=== PATIENT | female | born 1955 | race African-American/Black ===

== ENCOUNTER 2017-06-10 20:22 | Inpatient (IN) | payer MEDICARE, MEDICAID ==
[~2017-06-10] VITALS: Ht 160 cm; Wt 101.7 kg
[~2017-06-10 20:22] MED LIST: AMIT75TA2 PO; CLON0.2T PO; FURO40TA5 PO; GLIP5TAB12 PO; MECL-109 PO; NIFEDIPINE PO; PRAV80TA21 PO; RIVA20TA PO
[2017-06-10] MEDS ORDERED: ACETAMINOPHEN 325MG TABLET PO ONE ×2 (21:15)
[2017-06-10] MEDS ORDERED: LEVOFLOXACIN 750MG PREMIX 150 ML IV ONE (21:15)
[2017-06-10 21:49] LABS: HEMATOCRIT. 44.3 % (36.0-48.0); HEMOGLOBIN. 14.8 g/dL (12.0-16.0); MEAN CORPUSCULAR HEMOGLOBIN 27.7 pg (28.0-32.0); MEAN CORPUSCULAR VOLUME 82.7 fL (81.0-99.0); MEAN PLATELET VOLUME 8.2 fl (7.4-10.4); PLATELET 380 x1000/uL (130-400); RED BLOOD CELL COUNT 5.36 mill/uL (4.2-5.4); RED CELL DISTRIBUTION WIDTH 16.1 % (11.6-14.6)
[2017-06-10 21:53] LABS: INR 1.2; PROTHROMBIN TIME 12.7 sec
[2017-06-10 21:57] LABS: CARBON DIOXIDE 22 mEq/L (21-32); CHLORIDE 101 mEq/L (98-107)
[2017-06-10 21:57] LABS: CLARITY URINE CLEAR (CLEAR); COLOR URINE DARK YELLOW (YELLOW); GLUCOSE URINE 3+ (NEGATIVE); KETONES URINE NEGATIVE (NEGATIVE); LEUKOCYTE ESTERASE URINE NEGATIVE (NEGATIVE); NITRITE URINE NEGATIVE (NEGATIVE); OCCULT BLOOD URINE TRACE (NEGATIVE); PROTEIN URINE TRACE (NEGATIVE); SPECIFIC GRAVITY URINE 1.029 (1.005-1.030)
[2017-06-10 22:03] LABS: TROPONIN I < 0.02 ng/mL (0.00-0.04)
[2017-06-10 22:14] LABS: PLATELET ESTIMATE NORMAL
[2017-06-10] MEDS ORDERED: SODIUM CHLORIDE 0.9% 1000ML BAG (SEPSIS BOLUS) IV ONE (22:15)
[2017-06-10 22:22] LABS: BG BASE EXCESS -3.1 mmol/L (-2.0-2.0); BG CARBOXYHEMOGLOBIN 0.2 % (0.5-1.5); BG DEOXYHEMOGLOBIN 1.9 % (0.0-5.0); BG FRACTION INSPIRED OXYGEN 28; BG HCO3 ACT 20.3 mmol/L (22.0-26.0); BG METHEMOGLOBIN 0.6 % (0.0-1.5); BG OXYGEN SATURATION 98.1 % (92.0-98.5); BG OXYHEMOGLOBIN 97.3 % (94.0-97.0); BG PCO2 32.2 mmHg (35.0-45.0); BG PH 7.417 (7.350-7.450); BG PO2 106.5 mmHg (75.0-100.0); BG SAMPLE SITE RIGHT RADIAL; BG TOTAL HEMOGLOBIN 16.1 g/dL (12.0-18.0); BG VENT MODE NASAL CANNULA
[2017-06-11] VITALS (12 sets, daily range): BP systolic 122–164; BP diastolic 57–96
[2017-06-11] MEDS ORDERED: SODIUM CHLORIDE 0.9% 10ML VIAL ONE (06:00)
[2017-06-11] MEDS ORDERED: IOHEXOL-300 100 ML BOTTLE ONE (06:00)
[2017-06-11] MEDS ORDERED: ONDANSETRON HCL 4MG/2ML VIAL IV PRN (08:15)
[2017-06-11] MEDS ORDERED: LORAZEPAM 2MG/ML CPJ IV PRN (08:15)
[2017-06-11] MEDS ORDERED: ACETAMINOPHEN 325MG TABLET PO PRN (08:15)
[2017-06-11] MEDS ORDERED: HYDROMORPHONE HCL/PF 2MG/ML CPJ IV PRN (08:15)
[2017-06-11] MEDS ORDERED: IPRATROPIUM/ALBUTEROL 0.5-3(2.5)MG/3ML NEB INH PRN (08:15)
[2017-06-11] MEDS ORDERED: RIVAROXABAN 20 MG TABLET PO SCH (09:00)
[2017-06-11] MEDS: FUROSEMIDE 40MG TABLET PO SCH (09:49)
[2017-06-11] MEDS: PANTOPRAZOLE SODIUM 40 MG/VIAL IV SCH (09:49)
[2017-06-11] MEDS: ENOXAPARIN 30MG/0.3ML SYR SUBCUT SCH ×2 (09:49→21:42)
[2017-06-11] MEDS: DEXT 5%/0.45% NACL 1000ML 1,000 ML IV SCH ×2 (09:49→21:43)
[2017-06-11] MEDS: GLIPIZIDE 5MG TABLET PO SCH (09:49)
[2017-06-11] MEDS: NIFEDIPINE XL 60MG TAB PO SCH (09:53)
[2017-06-11] MEDS: CLONIDINE 0.2MG TABLET PO SCH ×3 (09:53→21:43)
[2017-06-11] MEDS ORDERED: METRONIDAZOLE 500 MG PREMIX 100 ML IV SCH (10:00)
[2017-06-11] MEDS ORDERED: VANCOMYCIN 2,000 MG in DEXT 5% WATER 500 ML IV SCH (15:30)
[2017-06-11] MEDS: PIPERACILLIN/TAZ 3.375G PREMIX 50 ML IV SCH ×2 (15:41→21:41)
[2017-06-11] MEDS ORDERED: SILVER SULFADIAZINE 1% CREAM 50GM TOP SCH (18:30)
[2017-06-11] MEDS: LEVOFLOXACIN 500MG PREMIX 100 ML IV SCH (21:42)
[2017-06-11] MEDS: ATORVASTATIN CALCIUM 20MG TABLET PO SCH (21:43)
[2017-06-12] VITALS (10 sets, daily range): BP systolic 135–162; BP diastolic 54–94
[2017-06-12] MEDS: PIPERACILLIN/TAZ 3.375G PREMIX 50 ML IV SCH ×4 (02:22→20:51)
[2017-06-12] MEDS: VANCOMYCIN 1 G PREMIX 200 ML IV SCH ×2 (04:13→19:11)
[2017-06-12] MEDS: CLONIDINE 0.2MG TABLET PO SCH ×3 (05:12→20:50)
[2017-06-12 06:18] LABS: CHLORIDE 99 mEq/L (98-107)
[2017-06-12 06:31] LABS: BASOPHILS % 0.8 % (0.0-2.0); EOSINOPHILS % 4.5 % (0.0-5.0); HEMATOCRIT. 39.8 % (36.0-48.0); HEMOGLOBIN. 13.4 g/dL (12.0-16.0); LYMPHOCYTES % 18.9 % (20.0-50.0); MEAN CORPUSCULAR HEMOGLOBIN 27.5 pg (28.0-32.0); MEAN CORPUSCULAR VOLUME 81.8 fL (81.0-99.0); MEAN PLATELET VOLUME 8.8 fl (7.4-10.4); MONOCYTES % 7.5 % (2.0-8.0); NEUTROPHILS % 68.3 % (40.0-76.0); PLATELET 368 x1000/uL (130-400); RED BLOOD CELL COUNT 4.86 mill/uL (4.2-5.4); RED CELL DISTRIBUTION WIDTH 15.6 % (11.6-14.6)
[2017-06-12 06:45] LABS: CARBON DIOXIDE 24 mEq/L (21-32)
[2017-06-12] MEDS: PANTOPRAZOLE SODIUM 40 MG/VIAL IV SCH (08:24)
[2017-06-12] MEDS: NIFEDIPINE XL 60MG TAB PO SCH (08:25)
[2017-06-12] MEDS: SILVER SULFADIAZINE 1% CREAM 50GM TOP SCH (08:25)
[2017-06-12] MEDS: FUROSEMIDE 40MG TABLET PO SCH (08:25)
[2017-06-12] MEDS: ENOXAPARIN 30MG/0.3ML SYR SUBCUT SCH ×2 (08:25→20:51)
[2017-06-12] MEDS: POVIDONE IODINE TOP SCH (08:25)
[2017-06-12] MEDS: GLIPIZIDE 5MG TABLET PO SCH (08:25)
[2017-06-12] MEDS ORDERED: POVIDONE-IODINE 10% TOPICAL SOLN 240ML TOP SCH ×2 (09:00→21:00)
[2017-06-12] MEDS: DEXT 5%/0.45% NACL 1000ML 1,000 ML IV SCH ×2 (11:10→20:50)
[2017-06-12] MEDS ORDERED: POTASSIUM CHLORIDE 20MEQ TABLET SR PO NR (11:15)
[2017-06-12] MEDS ORDERED: DEXTROSE 50% WATER 50ML SYRINGE IV PRN (20:45)
[2017-06-12] MEDS: ATORVASTATIN CALCIUM 20MG TABLET PO SCH (20:50)
[2017-06-12] MEDS ORDERED: SILVER SULFADIAZINE 1% CREAM 25GM TOP SCH (21:00)
[2017-06-12] MEDS: BLOOD SUGAR DIAGNOSTIC STRIP TEST SCH (21:15)
[2017-06-12] MEDS: INSULIN LISPRO 100 UNITS/ML SUBCUT SCH (21:17)
[2017-06-12] MEDS: MUPIROCIN 2% OINT 22GM NS SCH (21:18)
[2017-06-12] MEDS: LEVOFLOXACIN 500MG PREMIX 100 ML IV SCH (22:40)
[2017-06-13] VITALS: BP 140/91
[2017-06-13] MEDS: VANCOMYCIN 1 G PREMIX 200 ML IV SCH ×2 (02:45→16:50)
[2017-06-13] MEDS: PIPERACILLIN/TAZ 3.375G PREMIX 50 ML IV SCH ×4 (02:45→20:45)
[2017-06-13 04:00] VITALS: BP 151/89
[2017-06-13] MEDS: CLONIDINE 0.2MG TABLET PO SCH ×3 (05:34→21:26)
[2017-06-13] MEDS: BLOOD SUGAR DIAGNOSTIC STRIP TEST SCH ×4 (05:38→20:53)
[2017-06-13 05:59] LABS: CARBON DIOXIDE 23 mEq/L (21-32); CHLORIDE 100 mEq/L (98-107); VANCOMYCIN TROUGH 38.1 ug/mL (5.0-10.0)
[2017-06-13 07:46] LABS: EOSINOPHILS % 2.8 % (0.0-5.0); HEMOGLOBIN. 14.1 g/dL (12.0-16.0); LYMPHOCYTES % 16.1 % (20.0-50.0); MEAN CORPUSCULAR HEMOGLOBIN 27.9 pg (28.0-32.0); MEAN CORPUSCULAR VOLUME 80.8 fL (81.0-99.0); MEAN PLATELET VOLUME 8.6 fl (7.4-10.4); MONOCYTES % 8.6 % (2.0-8.0); NEUTROPHILS % 71.5 % (40.0-76.0); PLATELET 407 x1000/uL (130-400); RED BLOOD CELL COUNT 5.07 mill/uL (4.2-5.4); RED CELL DISTRIBUTION WIDTH 15.5 % (11.6-14.6)
[2017-06-13 08:00] VITALS: BP 141/88
[2017-06-13] MEDS: FUROSEMIDE 40MG TABLET PO SCH (09:01)
[2017-06-13] MEDS: INSULIN LISPRO 100 UNITS/ML SUBCUT SCH ×4 (09:01→21:23)
[2017-06-13] MEDS: PANTOPRAZOLE SODIUM 40 MG/VIAL IV SCH (09:02)
[2017-06-13] MEDS: NIFEDIPINE XL 60MG TAB PO SCH (09:02)
[2017-06-13] MEDS: GLIPIZIDE 5MG TABLET PO SCH (09:02)
[2017-06-13] MEDS: ENOXAPARIN 30MG/0.3ML SYR SUBCUT SCH ×2 (09:03→20:46)
[2017-06-13] MEDS: MUPIROCIN 2% OINT 22GM NS SCH ×2 (09:07→20:45)
[2017-06-13] MEDS: POVIDONE IODINE TOP SCH (09:07)
[2017-06-13] MEDS: SILVER SULFADIAZINE 1% CREAM 50GM TOP SCH (09:07)
[2017-06-13] MEDS ORDERED: MAGNESIUM 2 G PREMIX 50 ML IV SCH (11:00)
[2017-06-13 12:00] VITALS: BP 136/87
[2017-06-13] MEDS: POTASSIUM CHLORIDE 20MEQ TABLET SR PO SCH (13:00)
[2017-06-13] MEDS: DEXT 5%/0.45% NACL 1000ML 1,000 ML IV SCH (13:13)
[2017-06-13 16:00] VITALS: BP 129/78
[2017-06-13 20:00] VITALS: BP 128/79
[2017-06-13] MEDS: LEVOFLOXACIN 500MG PREMIX 100 ML IV SCH (20:44)
[2017-06-13] MEDS: ATORVASTATIN CALCIUM 20MG TABLET PO SCH (20:45)
[2017-06-14] VITALS (7 sets, daily range): BP systolic 108–139; BP diastolic 67–92
[2017-06-14] MEDS: PIPERACILLIN/TAZ 3.375G PREMIX 50 ML IV SCH ×3 (02:54→14:53)
[2017-06-14] MEDS: CLONIDINE 0.2MG TABLET PO SCH ×2 (05:52→14:52)
[2017-06-14] MEDS: DEXT 5%/0.45% NACL 1000ML 1,000 ML IV SCH ×2 (05:53→18:11)
[2017-06-14] MEDS: BLOOD SUGAR DIAGNOSTIC STRIP TEST SCH ×3 (05:59→18:11)
[2017-06-14 07:03] LABS: EOSINOPHILS % 3.7 % (0.0-5.0); HEMATOCRIT. 42.9 % (36.0-48.0); HEMOGLOBIN. 14.6 g/dL (12.0-16.0); LYMPHOCYTES % 22.5 % (20.0-50.0); MEAN CORPUSCULAR HEMOGLOBIN 27.5 pg (28.0-32.0); MEAN CORPUSCULAR VOLUME 81.1 fL (81.0-99.0); MEAN PLATELET VOLUME 8.6 fl (7.4-10.4); MONOCYTES % 8.2 % (2.0-8.0); NEUTROPHILS % 64.6 % (40.0-76.0); PLATELET 426 x1000/uL (130-400); RED BLOOD CELL COUNT 5.29 mill/uL (4.2-5.4); RED CELL DISTRIBUTION WIDTH 15.5 % (11.6-14.6)
[2017-06-14 07:42] LABS: CARBON DIOXIDE 28 mEq/L (21-32); CHLORIDE 96 mEq/L (98-107)
[2017-06-14] MEDS ORDERED: FAMOTIDINE 20MG TABLET PO SCH (09:00)
[2017-06-14] MEDS: POTASSIUM CHLORIDE 20MEQ TABLET SR PO SCH (09:01)
[2017-06-14] MEDS: GLIPIZIDE 5MG TABLET PO SCH (09:03)
[2017-06-14] MEDS: FUROSEMIDE 40MG TABLET PO SCH (09:03)
[2017-06-14] MEDS: ENOXAPARIN 30MG/0.3ML SYR SUBCUT SCH (09:04)
[2017-06-14] MEDS: NIFEDIPINE XL 60MG TAB PO SCH (09:04)
[2017-06-14] MEDS: MUPIROCIN 2% OINT 22GM NS SCH (09:05)
[2017-06-14] MEDS: POVIDONE IODINE TOP SCH (09:06)
[2017-06-14] MEDS: SILVER SULFADIAZINE 1% CREAM 50GM TOP SCH (09:06)
[2017-06-14] MEDS: INSULIN LISPRO 100 UNITS/ML SUBCUT SCH ×3 (09:11→18:15)
[2017-06-14] MEDS ORDERED: POTASSIUM CHLORIDE 20MEQ TABLET SR PO SCH (11:15)
== END 2017-06-14 20:50 | disposition home or self-care (01) | DRG 871 ==
LOC: ER 20:57 → 3WST 06-11 00:04 → EDBEDREQ 06-11 00:10 → EDBEDREQSVC 06-11 00:10 → EDBEDREQTM 06-11 00:10 → ENRESERV 06-11 02:41 → 7WST 06-12 12:37
PROVIDERS: ADMIT Hospitalist; ATTEND Hospitalist
DX: A41.9 Sepsis, unspecified organism (principal); E43 Unspecified severe protein-calorie malnutrition; G93.40 Encephalopathy, unspecified; E87.2 Acidosis; J98.11 Atelectasis; N39.0 Urinary tract infection, site not specified; L03.818 Cellulitis of other sites; E03.9 Hypothyroidism, unspecified; E11.9 Type 2 diabetes mellitus without complications; G35 Multiple sclerosis; K52.9 Noninfective gastroenteritis and colitis, unspecified; K76.0 Fatty (change of) liver, not elsewhere classified; L98.8 Other specified disorders of the skin and subcutaneous tissue; Z74.01 Bed confinement status; Z68.39 Body mass index [BMI] 39.0-39.9, adult
CPT/HCPCS: 36415; 36600; 51702; 70450; 71010; 71260; 74177; 80053; 80202; 81001; 82375; 82805; 82962; 83605; 83735; 84484; 85025; 85610; 87040; 87086; 96365; 96366; 96375; 99291; A4216; C9113; J1650; J1815; J1956; J2543; J3370; J3475; J3490; J7030; J7060; Q9967; A4315

== ENCOUNTER 2018-08-28 16:27 | Inpatient (IN) | payer MEDICARE, MEDICAID ==
[~2018-08-28] VITALS: Ht 167.6 cm; Wt 78.5 kg
[~2018-08-28 16:27] MED LIST changes: -AMIT75TA2 PO; -FURO40TA5 PO; -GLIP5TAB12 PO; -MECL-109 PO; -NIFEDIPINE PO; -PRAV80TA21 PO
[2018-08-28] MEDS ORDERED: SODIUM CHLORIDE 0.9% 1,000 ML IV ONE (16:58)
[2018-08-28 17:36] LABS: CHLORIDE 104 mEq/L (98-107); EOSINOPHILS % 6.2 % (0.0-5.0); HEMATOCRIT. 38.9 % (36.0-48.0); HEMOGLOBIN. 12.7 g/dL (12.0-16.0); LYMPHOCYTES % 20.3 % (20.0-50.0); MEAN CORPUSCULAR HEMOGLOBIN 25.3 pg (28.0-32.0); MEAN CORPUSCULAR VOLUME 77.8 fL (81.0-99.0); MEAN PLATELET VOLUME 7.9 fl (7.4-10.4); MONOCYTES % 8.6 % (2.0-8.0); NEUTROPHILS % 63.9 % (40.0-76.0); PLATELET 471 x1000/uL (130-400); RED BLOOD CELL COUNT 5.01 mill/uL (4.2-5.4); RED CELL DISTRIBUTION WIDTH 17.9 % (11.6-14.6)
[2018-08-28 17:39] LABS: INR 1.1; PROTHROMBIN TIME 10.7 sec (9.1-11.1)
[2018-08-28 18:36] LABS: CLARITY URINE CLEAR (CLEAR); COLOR URINE YELLOW (YELLOW); KETONES URINE NEGATIVE (NEGATIVE); LEUKOCYTE ESTERASE URINE NEGATIVE (NEGATIVE); NITRITE URINE NEGATIVE (NEGATIVE); OCCULT BLOOD URINE NEGATIVE (NEGATIVE); PH URINE 7.5 (4.5-8.0); PROTEIN URINE NEGATIVE (NEGATIVE)
[2018-08-28] MEDS ORDERED: VANCOMYCIN 1 G PREMIX 200 ML IV SCH (18:45)
[2018-08-28] MEDS ORDERED: GUAIFENESIN 200MG/10ML SUGAR FREE UDC PO PRN (21:15)
[2018-08-28] MEDS ORDERED: DOCUSATE SODIUM 100MG CAPSULE PO PRN (21:15)
[2018-08-28] MEDS: PIPERACILLIN/TAZ 3.375G PREMIX 50 ML IV SCH (21:15)
[2018-08-28] MEDS ORDERED: ONDANSETRON HCL 4MG/2ML INJ IV PRN (21:15)
[2018-08-28] MEDS ORDERED: HYDROCODONE/ACETAMINOPHEN 5/325MG TABLET PO PRN (21:15)
[2018-08-28] MEDS ORDERED: IPRATROPIUM/ALBUTEROL 0.5-3(2.5)MG/3ML NEB INH PRN (21:15)
[2018-08-28] MEDS ORDERED: LORAZEPAM 2MG/ML CPJ IV PRN (21:15)
[2018-08-28] MEDS ORDERED: NA PHOS,M-B/NA PHOS,DI-BA ENEMA 118ML PR PRN (21:15)
[2018-08-28] MEDS ORDERED: CLONIDINE 0.1MG TABLET PO PRN (21:15)
[2018-08-28] MEDS ORDERED: MAGNESIUM/ALUMINUM HYDROXIDE/SIMETHICONE 30ML UDC PO PRN (21:15)
[2018-08-28] MEDS ORDERED: ACETAMINOPHEN 325MG TABLET PO PRN (21:15)
[2018-08-28] MEDS ORDERED: DIPHENHYDRAMINE 50MG/ML VIAL IV PRN (21:15)
[2018-08-28] MEDS ORDERED: PIPERACILLIN/TAZ 3.375G PREMIX 50 ML IV NR (21:45)
[2018-08-28] MEDS: ENOXAPARIN 40MG/0.4ML SYR SUBCUT SCH (22:51)
[2018-08-28 23:42] LABS: CHLORIDE 104 mEq/L (98-107)
[2018-08-29] MEDS: PIPERACILLIN/TAZ 3.375G PREMIX 50 ML IV SCH (05:15)
[2018-08-29] MEDS ORDERED: PIPERACILLIN/TAZ 3.375G PREMIX 50 ML IV NR (06:00)
[2018-08-29] MEDS: MORPHINE SULFATE 4 MG/ML CPJ (NOT FOR IM USE) IV PRN (07:08)
[2018-08-29 09:05] LABS: BASOPHILS % 1.1 % (0.0-2.0); EOSINOPHILS % 2.4 % (0.0-5.0); HEMATOCRIT. 40.3 % (36.0-48.0); HEMOGLOBIN. 13.1 g/dL (12.0-16.0); LYMPHOCYTES % 18.4 % (20.0-50.0); MEAN CORPUSCULAR HEMOGLOBIN 25.2 pg (28.0-32.0); MEAN CORPUSCULAR VOLUME 77.4 fL (81.0-99.0); MEAN PLATELET VOLUME 7.7 fl (7.4-10.4); MONOCYTES % 7.8 % (2.0-8.0); NEUTROPHILS % 70.3 % (40.0-76.0); PLATELET 490 x1000/uL (130-400); RED CELL DISTRIBUTION WIDTH 18.1 % (11.6-14.6)
[2018-08-29 09:16] LABS: CHLORIDE 104 mEq/L (98-107)
[2018-08-29 09:27] LABS: HDL CHOLESTEROL 56 mg/dL (40-59); LDL CHOLESTEROL 73 mg/dL (5-100); T4 FREE 1.29 ng/dL (0.76-1.46)
[2018-08-29] MEDS ORDERED: PIPERACILLIN/TAZ 3.375G PREMIX 50 ML IV SCH (14:00)
[2018-08-29 21:06] VITALS: BP 116/51
[2018-08-29 22:00] VITALS: BP 116/51
[2018-08-29] MEDS: ENOXAPARIN 40MG/0.4ML SYR SUBCUT SCH (23:09)
[2018-08-29] MEDS: VANCOMYCIN 1 G PREMIX 200 ML IV SCH (23:09)
[2018-08-30] VITALS: BP 129/79
[2018-08-30] MEDS: PIPERACILLIN/TAZ 3.375G PREMIX 50 ML IV SCH ×4 (00:35→21:31)
[2018-08-30 04:00] VITALS: BP 128/70
[2018-08-30] MEDS ORDERED: DEXTROSE 50% WATER 50ML SYRINGE IV PRN (05:15)
[2018-08-30] MEDS: BLOOD SUGAR DIAGNOSTIC STRIP TEST SCH ×4 (06:28→20:30)
[2018-08-30] MEDS: INSULIN LISPRO 100 UNITS/ML SUBCUT SCH ×4 (07:50→21:27)
[2018-08-30 07:57] VITALS: BP 146/71
[2018-08-30] MEDS: VANCOMYCIN 1 G PREMIX 200 ML IV SCH ×2 (08:58→21:31)
[2018-08-30] MEDS ORDERED: LIDOCAINE HCL/EPINEPHRINE 1%-EPI 1:100,000 20 ML VIAL IJ ONE (09:30)
[2018-08-30] MEDS ORDERED: SODIUM HYPOCHLORITE 0.125% 473ML SOLUTION TOP SCH (11:00)
[2018-08-30 12:08] VITALS: BP 116/63
[2018-08-30] MEDS ORDERED: CLOTRIMAZOLE 1% CREAM 30GM TOP SCH (12:30)
[2018-08-30] MEDS: NYSTATIN POWDER 15GM TOP SCH ×3 (13:00→17:00)
[2018-08-30 16:06] VITALS: BP 125/71
[2018-08-30 20:00] VITALS: BP 136/71
[2018-08-30] MEDS: MORPHINE SULFATE 4 MG/ML CPJ (NOT FOR IM USE) IV PRN (20:30)
[2018-08-30] MEDS: ENOXAPARIN 40MG/0.4ML SYR SUBCUT SCH (21:32)
[2018-08-31] VITALS (8 sets, daily range): BP systolic 139–165; BP diastolic 55–84
[2018-08-31] MEDS: PIPERACILLIN/TAZ 3.375G PREMIX 50 ML IV SCH ×2 (05:12→13:56)
[2018-08-31] MEDS: BLOOD SUGAR DIAGNOSTIC STRIP TEST SCH ×3 (05:12→17:20)
[2018-08-31] MEDS: INSULIN LISPRO 100 UNITS/ML SUBCUT SCH ×3 (07:50→17:50)
[2018-08-31] MEDS: NYSTATIN POWDER 15GM TOP SCH ×3 (13:00→19:51)
[2018-08-31] MEDS ORDERED: VANCOMYCIN 1 G PREMIX 200 ML IV SCH (21:00)
== END 2018-08-31 21:30 | disposition home health service (06) | DRG 580 ==
LOC: ER 16:27 → EDBEDREQ 18:54 → 6WST 08-29 18:49 → ENRESERV 08-29 19:31
PROVIDERS: ADMIT Internal Medicine; ATTEND Internal Medicine
PROC: 0KBP0ZZ Excision of Left Hip Muscle, Open Approach (ICD-10-PCS; principal; 2018-08-30)
DX: L89.224 Pressure ulcer of left hip, stage 4 (principal); R65.10 Systemic inflammatory response syndrome (SIRS) of non-infectious origin without acute organ dysfunction; E44.0 Moderate protein-calorie malnutrition; L89.152 Pressure ulcer of sacral region, stage 2; L89.323 Pressure ulcer of left buttock, stage 3; B35.3 Tinea pedis; I10 Essential (primary) hypertension; E11.9 Type 2 diabetes mellitus without complications; L81.9 Disorder of pigmentation, unspecified; B35.1 Tinea unguium; E05.90 Thyrotoxicosis, unspecified without thyrotoxic crisis or storm; L30.4 Erythema intertrigo; L85.3 Xerosis cutis; S71.112A Laceration without foreign body, left thigh, initial encounter; X58.XXXA Exposure to other specified factors, initial encounter; Y93.89 Activity, other specified; Y92.89 Other specified places as the place of occurrence of the external cause; Y99.8 Other external cause status; Z79.01 Long term (current) use of anticoagulants; Z86.73 Personal history of transient ischemic attack (TIA), and cerebral infarction without residual deficits; Z79.899 Other long term (current) drug therapy; Z68.27 Body mass index [BMI] 27.0-27.9, adult; Z88.1 Allergy status to other antibiotic agents; Z91.018 Allergy to other foods
CPT/HCPCS: 36415; 71045; 80048; 80061; 80202; 82962; 83605; 84134; 84145; 84439; 84443; 84484; 93005; 96361; 96365; 96366; 96367; 96372; 96375; 99285; J1650; J2270; J2405; J2543; J3370; J3490; J7030; J7040; A4315

== ENCOUNTER 2018-12-20 21:19 | Inpatient (IN) | payer MEDICARE, MEDICAID ==
[~2018-12-20] VITALS: Ht 172.7 cm; Wt 108.4 kg
[2018-12-20] MEDS: SODIUM CHLORIDE 0.9% 1000ML BAG (SEPSIS BOLUS) IV ONE ×2 (11:30→23:30)
[2018-12-20] MEDS: PIPERACILLIN/TAZ 3.375G PREMIX 50 ML IV ONE ×2 (11:30→23:30)
[2018-12-20] MEDS ORDERED: ACETAMINOPHEN 650MG SUPP PR STA (22:06)
[2018-12-20] MEDS ORDERED: VANCOMYCIN 1 G PREMIX 200 ML IV ONE (22:15)
[2018-12-20 23:03] LABS: BASOPHILS % 0.9 % (0.0-2.0); EOSINOPHILS % 2.3 % (0.0-5.0); HEMATOCRIT. 32.1 % (36.0-48.0); HEMOGLOBIN. 10.3 g/dL (12.0-16.0); LYMPHOCYTES % 8.4 % (20.0-50.0); MEAN CORPUSCULAR HEMOGLOBIN 24.9 pg (28.0-32.0); MEAN CORPUSCULAR VOLUME 77.9 fL (81.0-99.0); MEAN PLATELET VOLUME 7.1 fl (7.4-10.4); MONOCYTES % 9.5 % (2.0-8.0); NEUTROPHILS % 78.9 % (40.0-76.0); PLATELET 837 x1000/uL (130-400); RED BLOOD CELL COUNT 4.12 mill/uL (4.2-5.4); RED CELL DISTRIBUTION WIDTH 17.9 % (11.6-14.6)
[2018-12-20 23:09] LABS: CHLORIDE 104 mEq/L (98-107); INR 1.1; PROTHROMBIN TIME 11.5 sec (9.1-11.1)
[2018-12-21 00:34] LABS: CLARITY URINE CLEAR (CLEAR); COLOR URINE DARK YELLOW (YELLOW); KETONES URINE NEGATIVE (NEGATIVE); LEUKOCYTE ESTERASE URINE TRACE (NEGATIVE); NITRITE URINE NEGATIVE (NEGATIVE); OCCULT BLOOD URINE NEGATIVE (NEGATIVE); PH URINE 6.5 (4.5-8.0); PROTEIN URINE 1+ (NEGATIVE); SPECIFIC GRAVITY URINE 1.029 (1.005-1.030)
[2018-12-21] MEDS ORDERED: ACETAMINOPHEN 325MG TABLET PO PRN (10:30)
[2018-12-21] MEDS ORDERED: LORAZEPAM 0.5MG TABLET PO PRN (10:30)
[2018-12-21] MEDS ORDERED: CLONIDINE 0.1MG TABLET PO PRN (10:30)
[2018-12-21] MEDS ORDERED: IPRATROPIUM/ALBUTEROL 0.5-3(2.5)MG/3ML NEB INH PRN (10:30)
[2018-12-21] MEDS ORDERED: DOCUSATE SODIUM 100MG CAPSULE PO PRN (10:30)
[2018-12-21] MEDS ORDERED: ONDANSETRON HCL 4MG/2ML INJ IV PRN (10:30)
[2018-12-21] MEDS ORDERED: HYDROCODONE/ACETAMINOPHEN 5/325MG TABLET PO PRN (10:30)
[2018-12-21] MEDS ORDERED: IOHEXOL-300 100 ML BOTTLE ONE (14:48)
[2018-12-21 16:00] VITALS: BP 184/87
[2018-12-21 18:35] VITALS: BP 184/87
[2018-12-21] MEDS: SODIUM CHLORIDE 0.9% 1,000 ML IV SCH (19:49)
[2018-12-21 20:00] VITALS: BP 142/72
[2018-12-21] MEDS: INSULIN LISPRO 100 UNITS/ML SUBCUT SCH (20:16)
[2018-12-21] MEDS: BLOOD SUGAR DIAGNOSTIC STRIP TEST SCH (20:16)
[2018-12-21] MEDS ORDERED: VANCOMYCIN 1500MG in DEXTROSE 5% WATER 250ML IV SCH (22:00)
[2018-12-21] MEDS: PIPERACILLIN/TAZ 3.375G PREMIX 50 ML IV SCH (22:48)
[2018-12-22] VITALS: BP 144/69
[2018-12-22 04:00] VITALS: BP 168/73
[2018-12-22] MEDS: PIPERACILLIN/TAZ 3.375G PREMIX 50 ML IV SCH ×2 (06:29→21:56)
[2018-12-22] MEDS: BLOOD SUGAR DIAGNOSTIC STRIP TEST SCH ×4 (06:36→21:44)
[2018-12-22 06:41] LABS: BASOPHILS % 0.6 % (0.0-2.0); EOSINOPHILS % 3.4 % (0.0-5.0); HEMATOCRIT. 28.4 % (36.0-48.0); HEMOGLOBIN. 9.3 g/dL (12.0-16.0); LYMPHOCYTES % 11.1 % (20.0-50.0); MEAN CORPUSCULAR HEMOGLOBIN 25.3 pg (28.0-32.0); MEAN CORPUSCULAR VOLUME 77.2 fL (81.0-99.0); MEAN PLATELET VOLUME 7.3 fl (7.4-10.4); MONOCYTES % 11.1 % (2.0-8.0); NEUTROPHILS % 73.8 % (40.0-76.0); PLATELET 836 x1000/uL (130-400); RED BLOOD CELL COUNT 3.68 mill/uL (4.2-5.4); RED CELL DISTRIBUTION WIDTH 17.5 % (11.6-14.6)
[2018-12-22 07:30] LABS: CHLORIDE 108 mEq/L (98-107)
[2018-12-22 07:35] LABS: FOLIC ACID (FOLATE) SERUM 17.1 ng/mL (>5.38)
[2018-12-22 07:39] LABS: LDL CHOLESTEROL 64 mg/dL (5-100)
[2018-12-22 07:40] LABS: TOTAL IRON BINDING CAPACITY 164 ug/dL (250-450)
[2018-12-22 07:41] LABS: HDL CHOLESTEROL 40 mg/dL (40-59)
[2018-12-22] MEDS: INSULIN LISPRO 100 UNITS/ML SUBCUT SCH ×4 (07:50→21:00)
[2018-12-22 08:00] VITALS: BP 168/72
[2018-12-22] MEDS: VANCOMYCIN 1 G PREMIX 200 ML IV SCH ×2 (10:22→23:52)
[2018-12-22 12:00] VITALS: BP 147/80
[2018-12-22] MEDS ORDERED: LIDOCAINE HCL/EPINEPHRINE 1%-EPI 1:100,000 20 ML VIAL INFIL NR (13:30)
[2018-12-22 16:00] VITALS: BP 166/79
[2018-12-22 20:00] VITALS: BP 153/61
[2018-12-23] VITALS: BP 154/58
[2018-12-23 04:00] VITALS: BP 151/76
[2018-12-23] MEDS: BLOOD SUGAR DIAGNOSTIC STRIP TEST SCH ×4 (07:45→21:54)
[2018-12-23] MEDS: INSULIN LISPRO 100 UNITS/ML SUBCUT SCH ×4 (07:50→21:00)
[2018-12-23] MEDS: PIPERACILLIN/TAZ 3.375G PREMIX 50 ML IV SCH (07:55)
[2018-12-23 08:00] VITALS: BP 165/77
[2018-12-23] MEDS: VANCOMYCIN 1 G PREMIX 200 ML IV SCH (11:09)
[2018-12-23 12:00] VITALS: BP 165/68
[2018-12-23 12:03] LABS: BASOPHILS % 0.7 % (0.0-2.0); HEMATOCRIT. 30.5 % (36.0-48.0); HEMOGLOBIN. 9.8 g/dL (12.0-16.0); LYMPHOCYTES % 7.3 % (20.0-50.0); MEAN CORPUSCULAR HEMOGLOBIN 24.9 pg (28.0-32.0); MEAN CORPUSCULAR VOLUME 77.6 fL (81.0-99.0); MEAN PLATELET VOLUME 6.7 fl (7.4-10.4); MONOCYTES % 13.8 % (2.0-8.0); NEUTROPHILS % 75.2 % (40.0-76.0); PLATELET 803 x1000/uL (130-400); RED BLOOD CELL COUNT 3.94 mill/uL (4.2-5.4); RED CELL DISTRIBUTION WIDTH 18.1 % (11.6-14.6)
[2018-12-23 12:38] LABS: CHLORIDE 106 mEq/L (98-107)
[2018-12-23] MEDS: SODIUM CHLORIDE 0.9% 1,000 ML IV SCH (12:57)
[2018-12-23 16:00] VITALS: BP 134/72
[2018-12-23] MEDS ORDERED: PIPERACILLIN/TAZ 3.375G PREMIX 50 ML IV SCH (16:00)
[2018-12-23] MEDS: CEFTRIAXONE 2 G in DEXTROSE 5% WATER 50 ML IV SCH (18:30)
[2018-12-23 20:00] VITALS: BP 173/80
[2018-12-23] MEDS: CLONIDINE 0.1MG TABLET PO PRN (22:09)
[2018-12-24] VITALS: BP 149/73
[2018-12-24] MEDS: SODIUM CHLORIDE 0.9% 1,000 ML IV SCH (01:46)
[2018-12-24 04:00] VITALS: BP 169/81
[2018-12-24 06:23] LABS: BASOPHILS % 0.6 % (0.0-2.0); EOSINOPHILS % 1.7 % (0.0-5.0); HEMATOCRIT. 29.9 % (36.0-48.0); HEMOGLOBIN. 9.8 g/dL (12.0-16.0); LYMPHOCYTES % 7.4 % (20.0-50.0); MEAN CORPUSCULAR VOLUME 76.5 fL (81.0-99.0); MEAN PLATELET VOLUME 6.8 fl (7.4-10.4); MONOCYTES % 11.6 % (2.0-8.0); NEUTROPHILS % 78.7 % (40.0-76.0); PLATELET 832 x1000/uL (130-400)
[2018-12-24] MEDS: BLOOD SUGAR DIAGNOSTIC STRIP TEST SCH ×4 (06:54→20:44)
[2018-12-24 07:16] LABS: CHLORIDE 106 mEq/L (98-107)
[2018-12-24] MEDS: INSULIN LISPRO 100 UNITS/ML SUBCUT SCH ×4 (07:50→20:44)
[2018-12-24 08:00] VITALS: BP 168/64
[2018-12-24] MEDS: CLONIDINE 0.1MG TABLET PO PRN (08:53)
[2018-12-24] MEDS ORDERED: HYDRALAZINE 20MG/ML VIAL IV ONE (09:15)
[2018-12-24] MEDS ORDERED: AMLODIPINE 5MG TABLET PO SCH (09:15)
[2018-12-24] MEDS ORDERED: LORAZEPAM 0.5MG TABLET PO PRN (10:30)
[2018-12-24] MEDS ORDERED: HYDRALAZINE 10 MG in SODIUM CHLORIDE 0.9% 49.5 ML IV SCH (11:00)
[2018-12-24 12:00] VITALS: BP 141/52
[2018-12-24 12:52] LABS: PHOSPHORUS 3.6 mg/dL (2.5-4.9)
[2018-12-24 12:55] LABS: T4 FREE 1.17 ng/dL (0.76-1.46)
[2018-12-24 13:00] VITALS: BP 151/68
[2018-12-24] MEDS: CEFTRIAXONE 2 G in DEXTROSE 5% WATER 50 ML IV SCH (17:44)
[2018-12-24 20:00] VITALS: BP 166/80
[2018-12-24] MEDS ORDERED: KCL 20MEQ/100ML PREMIX 100 ML IV SCH (20:00)
[2018-12-25] VITALS (7 sets, daily range): BP systolic 151–172; BP diastolic 59–82
[2018-12-25] MEDS: BLOOD SUGAR DIAGNOSTIC STRIP TEST SCH ×4 (06:21→20:27)
[2018-12-25 06:30] LABS: CHLORIDE 105 mEq/L (98-107)
[2018-12-25] MEDS: INSULIN LISPRO 100 UNITS/ML SUBCUT SCH ×4 (06:34→20:27)
[2018-12-25] MEDS: DEXTROSE 50% WATER 50ML SYRINGE IV PRN ×2 (06:36→11:45)
[2018-12-25] MEDS: SODIUM CHLORIDE 0.9% 1,000 ML IV SCH ×2 (06:42→16:23)
[2018-12-25 07:09] LABS: BASOPHILS % 0.8 % (0.0-2.0); EOSINOPHILS % 0.4 % (0.0-5.0); HEMATOCRIT. 29.3 % (36.0-48.0); HEMOGLOBIN. 9.4 g/dL (12.0-16.0); LYMPHOCYTES % 12.6 % (20.0-50.0); MEAN CORPUSCULAR HEMOGLOBIN 24.7 pg (28.0-32.0); MEAN CORPUSCULAR VOLUME 77.2 fL (81.0-99.0); MONOCYTES % 14.8 % (2.0-8.0); NEUTROPHILS % 71.4 % (40.0-76.0); PLATELET 721 x1000/uL (130-400); RED BLOOD CELL COUNT 3.79 mill/uL (4.2-5.4); RED CELL DISTRIBUTION WIDTH 17.8 % (11.6-14.6)
[2018-12-25] MEDS: CLONIDINE 0.1MG TABLET PO PRN (16:50)
[2018-12-25] MEDS: CEFTRIAXONE 2 G in DEXTROSE 5% WATER 50 ML IV SCH (17:01)
[2018-12-26] VITALS: BP 147/75
[2018-12-26 04:00] VITALS: BP 161/66
[2018-12-26] MEDS: INSULIN LISPRO 100 UNITS/ML SUBCUT SCH ×4 (06:08→20:45)
[2018-12-26] MEDS: BLOOD SUGAR DIAGNOSTIC STRIP TEST SCH ×4 (06:08→20:45)
[2018-12-26] MEDS: SODIUM CHLORIDE 0.9% 1,000 ML IV SCH ×2 (06:10→20:53)
[2018-12-26 06:29] LABS: BASOPHILS % 0.6 % (0.0-2.0); EOSINOPHILS % 0.2 % (0.0-5.0); HEMATOCRIT. 31.3 % (36.0-48.0); HEMOGLOBIN. 10.2 g/dL (12.0-16.0); LYMPHOCYTES % 13.3 % (20.0-50.0); MEAN CORPUSCULAR VOLUME 76.8 fL (81.0-99.0); MEAN PLATELET VOLUME 6.8 fl (7.4-10.4); MONOCYTES % 8.8 % (2.0-8.0); NEUTROPHILS % 77.1 % (40.0-76.0); PLATELET 693 x1000/uL (130-400); RED BLOOD CELL COUNT 4.08 mill/uL (4.2-5.4); RED CELL DISTRIBUTION WIDTH 18.4 % (11.6-14.6)
[2018-12-26 06:35] LABS: CHLORIDE 105 mEq/L (98-107)
[2018-12-26 08:30] VITALS: BP 165/80
[2018-12-26] MEDS: CLONIDINE 0.1MG TABLET PO PRN ×2 (08:52→20:53)
[2018-12-26 12:17] VITALS: BP 161/82
[2018-12-26 16:08] VITALS: BP 144/87
[2018-12-26] MEDS: CEFTRIAXONE 2 G in DEXTROSE 5% WATER 50 ML IV SCH (17:03)
[2018-12-26 20:00] VITALS: BP 175/73
[2018-12-27] VITALS: BP 154/67
[2018-12-27 04:00] VITALS: BP 167/77
[2018-12-27] MEDS: BLOOD SUGAR DIAGNOSTIC STRIP TEST SCH ×4 (06:24→21:02)
[2018-12-27] MEDS: INSULIN LISPRO 100 UNITS/ML SUBCUT SCH ×4 (06:24→21:00)
[2018-12-27 08:00] VITALS: BP 170/73
[2018-12-27] MEDS: CLONIDINE 0.1MG TABLET PO PRN (08:44)
[2018-12-27] MEDS: SODIUM CHLORIDE 0.9% 1,000 ML IV SCH (08:45)
[2018-12-27 12:00] VITALS: BP 159/73
[2018-12-27 15:57] LABS: HEMATOCRIT 32.6 % (36.0-48.0); HEMOGLOBIN 10.7 g/dL (12.0-16.0); MEAN CORPUSCULAR HEMOGLOBIN 24.7 pg (28.0-32.0); MEAN CORPUSCULAR VOLUME 75.7 fL (81.0-99.0); PLATELET 725 x1000/uL (130-400); RED BLOOD CELL COUNT 4.31 mill/uL (4.2-5.4); RED CELL DISTRIBUTION WIDTH 18.2 % (11.6-14.6)
[2018-12-27 16:00] VITALS: BP 161/64
[2018-12-27 16:28] LABS: CHLORIDE 106 mEq/L (98-107)
[2018-12-27] MEDS: CEFTRIAXONE 2 G in DEXTROSE 5% WATER 50 ML IV SCH (17:33)
[2018-12-27 20:00] VITALS: BP 143/64
[2018-12-27] MEDS: CLONIDINE 0.2MG TABLET PO SCH (21:17)
[2018-12-28] VITALS: BP 105/51
[2018-12-28 04:00] VITALS: BP 133/60
[2018-12-28] MEDS: CLONIDINE 0.2MG TABLET PO SCH ×3 (05:42→21:02)
[2018-12-28] MEDS: BLOOD SUGAR DIAGNOSTIC STRIP TEST SCH ×4 (06:18→21:02)
[2018-12-28] MEDS: INSULIN LISPRO 100 UNITS/ML SUBCUT SCH ×4 (06:18→21:00)
[2018-12-28 06:44] LABS: CHLORIDE 108 mEq/L (98-107)
[2018-12-28 06:51] LABS: BASOPHILS % 0.4 % (0.0-2.0); EOSINOPHILS % 0.1 % (0.0-5.0); HEMATOCRIT. 31.9 % (36.0-48.0); HEMOGLOBIN. 10.3 g/dL (12.0-16.0); LYMPHOCYTES % 18.6 % (20.0-50.0); MEAN CORPUSCULAR HEMOGLOBIN 24.8 pg (28.0-32.0); MEAN CORPUSCULAR VOLUME 76.6 fL (81.0-99.0); MEAN PLATELET VOLUME 7.2 fl (7.4-10.4); MONOCYTES % 10.3 % (2.0-8.0); NEUTROPHILS % 70.6 % (40.0-76.0); PLATELET 569 x1000/uL (130-400); RED BLOOD CELL COUNT 4.17 mill/uL (4.2-5.4); RED CELL DISTRIBUTION WIDTH 18.2 % (11.6-14.6)
[2018-12-28 08:00] VITALS: BP 118/46
[2018-12-28 12:00] VITALS: BP 139/47
[2018-12-28 16:00] VITALS: BP 119/61
[2018-12-28] MEDS: CEFTRIAXONE 2 G in DEXTROSE 5% WATER 50 ML IV SCH (17:14)
[2018-12-28 20:00] VITALS: BP 130/64
[2018-12-29] VITALS (7 sets, daily range): BP systolic 110–148; BP diastolic 54–77
[2018-12-29] MEDS: INSULIN LISPRO 100 UNITS/ML SUBCUT SCH ×3 (05:42→16:48)
[2018-12-29] MEDS: CLONIDINE 0.2MG TABLET PO SCH ×2 (05:42→14:43)
[2018-12-29] MEDS: BLOOD SUGAR DIAGNOSTIC STRIP TEST SCH ×3 (05:42→16:48)
[2018-12-29] MEDS: SODIUM CHLORIDE 0.9% 1,000 ML IV SCH (15:25)
[2018-12-29] MEDS: CEFTRIAXONE 2 G in DEXTROSE 5% WATER 50 ML IV SCH (17:16)
== END 2018-12-29 20:58 | DRG 853 ==
LOC: ER 21:19 → 6EST 23:31 → EDBEDREQTM 23:42 → EDBEDREQ 23:42 → EDBEDREQSVC 12-21 15:24 → ENRESERV 12-21 15:31 → 6EST 12-21 18:05 → 8WST 12-24 12:59
PROVIDERS: ADMIT Internal Medicine; ATTEND Internal Medicine
PROC: 0KBP0ZZ Excision of Left Hip Muscle, Open Approach (ICD-10-PCS; principal; 2018-12-23)
PROC: 0JB70ZZ Excision of Back Subcutaneous Tissue and Fascia, Open Approach (ICD-10-PCS; 2018-12-23)
PROC: 4A00X4Z Measurement of Central Nervous Electrical Activity, External Approach (ICD-10-PCS; 2018-12-24)
PROC: 02HV33Z Insertion of Infusion Device into Superior Vena Cava, Percutaneous Approach (ICD-10-PCS; 2018-12-29)
PROC: B548ZZA Ultrasonography of Superior Vena Cava, Guidance (ICD-10-PCS; 2018-12-29)
DX: A41.9 Sepsis, unspecified organism (principal); L89.153 Pressure ulcer of sacral region, stage 3; L89.224 Pressure ulcer of left hip, stage 4; G92 Toxic encephalopathy; Q04.0 Congenital malformations of corpus callosum; L02.416 Cutaneous abscess of left lower limb; E87.2 Acidosis; M86.8X8 Other osteomyelitis, other site; E78.5 Hyperlipidemia, unspecified; G35 Multiple sclerosis; J44.9 Chronic obstructive pulmonary disease, unspecified; I10 Essential (primary) hypertension; D50.9 Iron deficiency anemia, unspecified; R62.50 Unspecified lack of expected normal physiological development in childhood; B96.4 Proteus (mirabilis) (morganii) as the cause of diseases classified elsewhere; G31.9 Degenerative disease of nervous system, unspecified; E05.90 Thyrotoxicosis, unspecified without thyrotoxic crisis or storm; D63.8 Anemia in other chronic diseases classified elsewhere; E11.69 Type 2 diabetes mellitus with other specified complication; G93.89 Other specified disorders of brain; Z51.5 Encounter for palliative care; Z79.4 Long term (current) use of insulin; Z86.73 Personal history of transient ischemic attack (TIA), and cerebral infarction without residual deficits; Z74.01 Bed confinement status; Z88.8 Allergy status to other drugs, medicaments and biological substances; Z79.899 Other long term (current) drug therapy
CPT/HCPCS: 36415; 36569; 70551; 71045; 73701; 76937; 80048; 80061; 80202; 82140; 82607; 82728; 82746; 82962; 83036; 83540; 83550; 83605; 83735; 84100; 84134; 84145; 84439; 84443; 84481; 84484; 85027; 87070; 87075; 87077; 87186; 92610; 93005; 93970; 96365; 99291; A6261; C1725; C1893; J0360; J0696; J1815; J2543; J3370; J3480; J3490; J7030; J7060; Q9967; A4315